=== PATIENT | male | born 1955 | race Caucasian/White ===

== ENCOUNTER 2018-04-06 07:18 | Emergency (ER) | payer OTHER ==
[~2018-04-06] VITALS: Ht 157.5 cm; Wt 59.0 kg
[2018-04-06 07:43] VITALS: Ht 157.5 cm; Wt 59.0 kg
[2018-04-06 08:22] LABS: CALCIUM 9.4 mg/dL (8.5-10.1); CARBON DIOXIDE 30.1 mmol/L (21-32); CHLORIDE SERUM 100 mmol/L (98-107); CREATININE SERUM 1.1 mg/dL (0.7-1.3); GFR1 > 60 mL/min; GLUCOSE SERUM 103 mg/dL (74-106); POTASSIUM SERUM 3.7 mmol/L (3.5-5.1); SODIUM SERUM 139 mmol/L (136-145)
[2018-04-06 09:03] LABS: BASOPHIL % 0.8 % (0-2); PLATELET COUNT 163 x10^3mcL (130-400); RED CELL DISTRIBUTION WIDTH 13.3 % (11.5-14.5)
[2018-04-06 10:15] VITALS: BP 136/87
== END 2018-04-06 08:11 | disposition home or self-care (01) ==
LOC: ED 07:18
PROVIDERS: Emergency Medicine
DX: N39.0 Urinary tract infection, site not specified (principal)
CPT/HCPCS: 36415; Q0092